=== PATIENT | male | born 1995 | race Caucasian/White ===

== ENCOUNTER 2018-12-11 12:20 | Emergency (ER) | payer OTHER, SELFPAY ==
[2018-12-11 12:45] VITALS: BP 152/82; PULSE 96; RESP 18; TEMP 35.9; O2SAT 100; BMI 19.8
[2018-12-11 13:54] LABS: Hemoglobin 15.3 g/dL (13.5-17.5)
[2018-12-11 13:59] VITALS: BP 128/78; PULSE 89; O2SAT 97
--- NOTE | 2018-12-11 14:04 | ED_ITS ---
HPI - GI Bleed <Jessica Miller PA-C - Last Filed: 12/11/18 21:29> General Chief complaint: GI Bleed Stated complaint: Bloody stool Time Seen by Provider: 12/11/18 13:39 Source: patient Mode of arrival: ambulatory Limitations: no limitations History of Present Illness HPI Narrative: this 23-year-old male comes to ED due to 4 day history of rectal pain with bowel movements (like rocks and glass ). Stools have been hard with bright red blood mixed in and also some on the toilet paper for the last 2 days. He has not had any bleeding aside from when he has seen with bowel movements. prior to that his bowel movements were normal. He denies any recent travel, exposures. He states that he takes Excedrin 1 dose up to 3 times weekly for headaches, otherwise no NSAIDs or any regular medications. He denies any abdominal pain or fever. He denies any anal sex or trauma. He has no family history of inflammatory bowel disease, father of colon cancer at age 53. Related Data Home Medications Medication Instructions Recorded Confirmed No Known Home Medications 12/11/18 12/11/18 Allergies Allergy/AdvReac Type Severity Reaction Status Date / Time No Known Drug Allergies Allergy Verified 12/11/18 13:30 Review of Systems <Jessica Miller PA-C - Last Filed: 12/11/18 21:29> Review of Systems ROS Unobtainable: All systems reviewed & are unremarkable except as noted in HPI and below PFSH <Jessica Miller PA-C - Last Filed: 12/11/18 21:29> Medical History Chronic headaches (Chronic) H/O wisdom tooth extraction (Resolved) Family History Father Cancer Social History Smoking Status: Current every day smoker Family History Father Cancer Social History Smoking Status: Current every day smoker Comment: +ETOH, no street drugs Exam <HO Pearce Last Filed: 12/11/18 21:29> Narrative Exam Narrative: GENERAL APPEARANCE: Patient sitting comfortably, in no distress. HEENT: PERRL, EOMI, conjunctivae pink NECK: Supple LUNGS: Clear to auscultation bilaterally. HEART: Rate and rhythm regular, normal S1 and S2, no S3 or S4. ABDOMEN: Soft, nontender, nondistended, bowel sounds present x 4 quadrants, no masses palpable RECTAL: Trace erythema around the perianal skin which is mildly tender to touch. No visible fissue or pile. On internal exam there is tenderness without any palpable mass or lesion. Small amount of light brown stool in vault, guaiac negative Initial Vital Signs Initial Vital Signs: Vital Signs Temperature 96.7 F L 12/11/18 12:45 Pulse Rate 96 H 12/11/18 12:45 Respiratory Rate 18 12/11/18 12:45 Blood Pressure 152/82 H 12/11/18 12:45 Pulse Oximetry 100 12/11/18 12:45 <Catina Broussard DO - Last Filed: 12/12/18 12:30> Initial Vital Signs Initial Vital Signs: Vital Signs Temperature 96.7 F L 12/11/18 12:45 Pulse Rate 96 H 12/11/18 12:45 Respiratory Rate 18 12/11/18 12:45 Blood Pressure 152/82 H 12/11/18 12:45 Pulse Oximetry 100 12/11/18 12:45 Course <Jessica Miller PA-C - Last Filed: 12/11/18 21:29> Orders Ordered: ED Orders 12/11/18 13:45 Hemoglobin and Hematocrit Stat Vital Signs - 8 hr 12/11/18 13:59 12/11/18 14:30 Pulse Rate 89 79 Blood Pressure [Right Arm] 128/78 124/66 Pulse Oximetry 97 99 <Catina Broussard DO - Last Filed: 12/12/18 12:30> Orders Ordered: ED Orders 12/11/18 13:45 Hemoglobin and Hematocrit Stat Vital Signs - 8 hr 12/11/18 13:59 12/11/18 14:30 Pulse Rate 89 79 Blood Pressure [Right Arm] 128/78 124/66 Pulse Oximetry 97 99 MDM - GI Bleed <HO Pearce Last Filed: 12/11/18 21:29> Lab Data Result diagrams: 12/11/18 13:45 Lab Results 12/11/18 Range/Units 13:45 Hgb 15.3 (13.5-17.5) g/dL Hct 44.0 (41-53) % <DO Lilly Conroy Last Filed: 12/12/18 12:30> Lab Data Lab Results 12/11/18 Range/Units 13:45 Hgb 15.3 (13.5-17.5) g/dL Hct 44.0 (41-53) % Discharge Plan Departure Patient Disposition: Home Clinical Impression: Rectal bleeding Discharge Date/Time: 12/11/18 14:58 Interventions: ED Discharge Assessment Last Done: 12/11/18 14:57 Instructions: DI for Rectal Bleeding Activity Restrictions/Additional Instructions: The source of your bleeding is not exactly clear today on exam. You have a little bit of irritation but I do not see a tear or other source for your pain. This could be inside. Please start [id number]-[id number] MiraLax daily to help soften the stools and avoid constipation. Pick that up on your way home and take the 1st dose right away since you have had hard stools. You can use a little [id number] preparation H or other topical anesthetic preparation e xternally if you wish. Also try to get your bottom into warm water several times daily. please return as we talked about if you have acutely worsening bleeding, or new symptoms such as fever or abdominal pain. Please call [facility] today and let them know that you were seen in the emergency room for rectal bleeding and need to arrange follow-up there since [place] Thank you for your service Prescriptions: No Action No Known Home Medications RF: 0 Referrals: [facility] [Provider Group] Deniz Owen MD [Physician] - <Catina Broussard DO - Last Filed: 12/12/18 12:30> Cosign ED Attending Alejandra Attestation: I was immediately available in the department for consultation. Documentation has been reviewed. I agree with assessment and plan.
[2018-12-11 14:30] VITALS: BP 124/66; PULSE 79; O2SAT 99
== END 2018-12-11 14:58 | disposition home or self-care (01) ==
PROVIDERS: Emergency Provider Internal Medicine
DX: K62.5 Hemorrhage of anus and rectum (principal)
CPT/HCPCS: 36415; 85014; 85018; 99282; 99283